=== PATIENT | female | born 1960 | race Caucasian/White ===

== ENCOUNTER 2018-08-27 03:33 | Emergency (ER) | payer BC, OTHER ==
[2018-08-27] MEDS ORDERED: HYDROmorphone 2 MG/ML SDV IM ONE (04:58)
[2018-08-27] MEDS ORDERED: Ketorolac 30 MG/ML SDV IM ONE (04:58)
[2018-08-27] MEDS ORDERED: Ondansetron 4 MG Tab.DIS PO ONE (05:00)
[2018-08-27] MEDS ORDERED: HYDROmorphone 2 MG/ML SDV ONE (05:09)
[2018-08-27] MEDS ORDERED: Ondansetron 4 MG Tab.DIS ONE (05:10)
[2018-08-27] MEDS: Ketorolac 60 MG/2 ML SDV ONE ×2 (05:15→12:14)
[2018-08-27 12:49] VITALS: BP 87/66
--- NOTE | 2018-08-27 23:34 | EDM.PDOC ---
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 Zavala stands on her feet all day. 2 half weeks ago she had onset of right hip pain. She went to a chiropractor tomorrow for adjustment and this did not resolve her pain. In fact her pain got worse and spread to her left hip. She has so much pain that she was unable to sleep for the past 2 nights. The pain is described as 8/10 intensity. Denies AP joint swelling or sausage like digits?fingers/edema or proximal phalanges. She denies fever chills or trauma. No recent arthritis medicine. - Related Data Allergies Allergy/AdvReac Type Severity Reaction Status Date / Time penicillin Allergy Hives Verified 08/27/18 12:47 Sulfa (Sulfonamide Allergy Hives Verified 08/27/18 12:47 Antibiotics) Home Meds: Home Meds Citalopram [Celexa] 20 mg PO BEDTIME 08/21/15 [History] atorvaSTATin Calcium [Atorvastatin Calcium] 10 mg PO BEDTIME 08/21/15 [History] Clindamycin HCl 300 mg PO Q6H PRN 08/27/18 [History] predniSONE [Prednisone] 10 mg PO DAILY #10 tab.ds.pk 08/27/18 [Rx] Past Medical History Cardiovascular History: Reports: High Cholesterol, Other (See Below) Other Cardiovascular History: States runs a low BP. Musculoskeletal History: Reports: Other (See Below) Other Musculoskeletal History: Low back and leg pain on right. - Past Surgical History HEENT Surgical History: Reports: Other (See Below) Other HEENT Surgeries/Procedures: Dental implants. 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 Social & Family History - Tobacco Use Smoking Status *Q: Never Smoker ED ROS GENERAL - Review of Systems Review Of Systems: See Below Constitutional: Reports: No Symptoms HEENT: Reports: No Symptoms Respiratory: Reports: No Symptoms Cardiovascular: Reports: No Symptoms Endocrine: Reports: No Symptoms GI/Abdominal: Reports: No Symptoms : Reports: No Symptoms Musculoskeletal: Reports: Other (Arthritis with joint pain of her hips and low back that radiates down her legs especially the right leg and now the left leg) Skin: Reports: No Symptoms Neurological: Reports: No Symptoms Psychiatric: Reports: No Symptoms Hematologic/Lymphatic: Reports: No Symptoms ED EXAM,LOWER BACK PAIN/INJURY - Physical Exam Exam: See Below Text/Narrative:: This pleasant 49-year-old woman is in moderate distress over her low back pain that radiates down to her left hip. His extensor left anterior mid thigh dysesthesia lower extremities. [place]. Exam Limited By: No Limitations General Appearance: Alert, Moderate Distress Eye Exam: Bilateral Eye: Normal Inspection Ears: Normal External Exam, Normal Canal, Normal TMs Nose: Normal Inspection, Normal Mucosa Throat/Mouth: Normal Inspection, Normal Lips, Normal Teeth, Normal Gums, Normal Oropharynx, Normal Voice, No Airway Compromise Head: Atraumatic, Normocephalic Neck: Normal Inspection, Supple, Non-Tender Respiratory/Chest: No Respiratory Distress, Lungs Clear, Normal Breath Sounds, No Accessory Muscle Use, Chest Non-Tender Cardiovascular: Normal Peripheral Pulses, Regular Rate, Rhythm, No Edema, No Gallop, No JVD, No Murmur, No Rub GI/Abdominal: Normal Bowel Sounds, Non-Tender, No Organomegaly, No Distention, No Abnormal Bruit, No Mass (Female) Exam: Deferred Rectal (Female) Exam: Deferred Extremities: Normal Inspection, Other (Tender left anterior thigh that extends to the mid anterior thigh. No ecchymosis no swelling no decreased range of motion of her) Neurological: Alert ( left leg.), Normal Mood/Affect, Normal Dorsiflexion, CN II -XII Intact, Normal Plantar Flexion, Abnormal Gait (Her gait is slow and mildly labored and careful because of left thigh pain.) DTR - Lower Extremities: 1+: Knee (R), Knee (L), Ankle (R), Ankle (L) Psychiatric: Normal Affect, Normal Mood Skin Exam: Warm, Dry, Intact, Normal Color Course - Vital Signs Last Recorded V/S: Last Vital Signs Temp 36.4 C 08/27/18 04:50 Pulse 58 L 08/27/18 04:50 Resp 16 08/27/18 04:50 BP 87/66 L 08/27/18 04:50 Pulse Ox 99 08/27/18 04:50 - Orders/Labs/Meds Meds: Medications Discontinued Medications Generic Name Dose Route Start Last Admin Trade Name Amador PRN Reason Stop Dose Admin Hydromorphone HCl Confirm 08/27/18 05:09 08/27/18 12:15 Dilaudid Administered 08/27/18 05:10 Not Given Dose 2 mg .ROUTE .STK-MED ONE Hydromorphone HCl 1 mg 08/27/18 04:58 08/27/18 05:15 Dilaudid IM 08/27/18 04:59 1 mg ONETIME ONE Administration Ketorolac Tromethamine Confirm 08/27/18 05:09 08/27/18 12:14 Toradol Administered 08/27/18 05:10 Not Given Dose 60 mg .ROUTE .STK-MED ONE Ketorolac Tromethamine 60 mg 08/27/18 04:58 08/27/18 05:15 Toradol IM 08/27/18 04:59 60 mg ONETIME ONE Administration Ondansetron HCl Confirm 08/27/18 05:10 08/27/18 12:14 Zofran Odt Administered 08/27/18 05:11 Not Given Dose 4 mg .ROUTE .STK-MED ONE Ondansetron HCl 4 mg 08/27/18 05:00 08/27/18 05:15 Zofran Odt PO 08/27/18 05:01 4 mg ONETIME ONE Administration Departure - Departure Time of Disposition: 04:24 Disposition: Home, Self-Care 01 Clinical Impression: Low back pain Qualifiers: Chronicity: acute Back pain laterality: left Sciatica presence: without sciatica Qualified Code(s): M54.5 - Low back pain - Discharge Information *PRESCRIPTION DRUG MONITORING PROGRAM REVIEWED*: Not Applicable *COPY OF PRESCRIPTION DRUG MONITORING REPORT IN PATIENT JIGNA: Not Applicable Prescriptions: predniSONE [Prednisone] 10 mg PO DAILY #10 tab.ds.pk Referrals: Kurtis Felipe MD [Primary Care Provider] - Forms: ED Department Discharge Additional Instructions: A couple of tests that may be considered for arthritis JENNI, RA titer, antinuclear antibody, and ACCP test If you're interested these tests I would suggest you discuss those tests with her doctor To decrease the pain you're having with her arthritis I have prescribed low- dose prednisone 10 mg daily for 4 days then decreased to 5 mg daily for 5 days. Perhaps that might decrease the pain you're experiencing in her hips. Since you plan to get the [facility] sponsored blood tests: Lipid, CBC CMP , per your request no tests have been ordered at this evening. Per your request I have not ordered any x-rays. Perhaps you will get some temporary pain relief tonight from the pain shot and released this week using of prednisone or several days These are just temporizing measures. It appeared to good free to see her doctor for further evaluation and ongoing therapy
== END 2018-08-27 05:28 | disposition home or self-care (01) ==
LOC: FB.ED 03:33
DX: M54.5 Low back pain (principal); Z88.0 Allergy status to penicillin; Z88.2 Allergy status to sulfonamides; Z79.899 Other long term (current) drug therapy
CPT/HCPCS: 96372; 99282; A9270; J1170; J1885